=== PATIENT | female | born 1995 | race Caucasian/White ===

== ENCOUNTER 2016-10-23 05:00 | Inpatient (IN) ==
[2016-10-23] MEDS: LACTATED RINGERS 1,000 ML IV SCH ×2 (06:00→09:15)
[2016-10-23] MEDS ORDERED: BUTORPHANOL 1 MG/ML VIAL IV ONE (06:00)
[2016-10-23] MEDS ORDERED: BUTORPHANOL 1 MG/ML VIAL ONE (06:00)
[2016-10-23] MEDS ORDERED: ONDANSETRON 4 MG/2 ML VIAL ONE (06:01)
[2016-10-23] MEDS ORDERED: BUTORPHANOL 2 MG/ML VIAL IV PRN (06:13)
[2016-10-23] MEDS ORDERED: ONDANSETRON 4 MG/2 ML VIAL IV PRN ×2 (06:13→17:40)
[2016-10-23 06:46] LABS: Basophils % 0.4 % (0.0-0.8); Eosinophils # 0.1 10*3/uL (0.0-0.87); Eosinophils % 0.5 % (0.00-10.9); Hematocrit 32.4 VOL% (35.7-47.0); Immature Granulocytes % 0.9 %; Immature Granulocytes Absolute 0.09 #; Lymphocytes # 1.1 10*3/uL (1.4-4.0); Lymphocytes % 11.7 % (21.3-54.2); Mean Corpuscular Hemoglobin 31 PG (27-34); Mean Corpuscular Volume 89.8 FL (87-102); Mean Platelet Volume 11.9 FL (9.6-12.0); Monocytes # 0.7 10*3/uL (0.11-0.8); Monocytes % 7.4 % (1.7-12.7); Neutrophils # 7.6 10*3/uL (1.4-7.4); Neutrophils % 79.1 % (38.7-73.9); Platelet Count 130 T/CUMM (130-400); Red Blood Count 3.61 MC/CUMM (3.8-5.5); Red Cell Distribution Width 12.5 % (9.3-17.3); White Blood Count 9.6 T/CUMM (4-12)
[2016-10-23] MEDS ORDERED: diphenhydrAMINE 50 MG/1 ML VIAL IV PRN ×2 (07:52)
[2016-10-23] MEDS ORDERED: ePHEDrine 50 MG/ML AMP IV PRN (07:52)
[2016-10-23] MEDS ORDERED: hydrOXYzine HCL 25 MG/1 ML VIAL IM PRN (07:52)
[2016-10-23] MEDS ORDERED: PROMETHAZINE 25 MG/1 ML VIAL IM ONE (07:52)
[2016-10-23] MEDS ORDERED: ONDANSETRON 4 MG/2 ML VIAL IV ONE (07:52)
[2016-10-23] MEDS ORDERED: CITRIC ACID/SODIUM CITRATE 30 ML UDCUP PO ONE (07:52)
[2016-10-23] MEDS ORDERED: LACTATED RINGERS 1,000 ML IV ONE ×2 (07:52→17:40)
[2016-10-23] MEDS ORDERED: FAMOTIDINE 20 MG/2 ML VIAL IV ONE (07:52)
[2016-10-23] MEDS: fentaNYL 2 MCG/ROPIV 0.2% EPID 150 ML EPIDURAL SCH (08:25)
--- NOTE | 2016-10-23 09:21 | History and Physical Update ---
History and Physical Update - Dictation Physical: refer to scanned H&P - Physical Exam Mental Status: alert and oriented Heart: regular rate and rhythm Lung: clear to auscultation Abdomen: within normal limits Vitals: within normal limits History and Physical Changes: 38 weeks in active labor with regular UC's, cervix now at 6-7 cm/80%/0 station. FHTs Category 1. GBS negative. Expect .
[2016-10-23] MEDS ORDERED: miSOPROStol 200 MCG TABLET ONE (11:32)
[2016-10-23] MEDS ORDERED: LIDOCAINE 1% 50 ML VIAL ONE (11:32)
[2016-10-23] MEDS ORDERED: OXYTOCIN/LR 20 UNIT/1,000 ML BAG IV ONE ×2 (11:32→13:50)
[2016-10-23] MEDS ORDERED: BENZOCAINE 20%/MENTHOL 0.5% SPRAY 56 GM CAN TOP PRN (17:36)
[2016-10-23] MEDS ORDERED: BISACODYL 10 MG SUPP RECTAL PRN (17:40)
[2016-10-23] MEDS ORDERED: LANOLIN 50% CREAM 0.3 OZ TUBE TOP PRN (17:40)
[2016-10-23] MEDS ORDERED: WITCH HAZEL PADS 100/JAR TOP PRN (17:40)
[2016-10-23] MEDS ORDERED: HYDROCORTISONE 2.5% RECTAL CREAM 30 GM TUBE TOP PRN (17:40)
[2016-10-23] MEDS: IBUPROFEN 800 MG TABLET PO PRN (17:50)
[2016-10-23] MEDS: DOCUSATE SODIUM 100 MG CAPSULE PO SCH (21:16)
[2016-10-24] MEDS: LACTATED RINGERS 1,000 ML IV SCH ×2 (02:28→06:50)
[2016-10-24] MEDS: fentaNYL 2 MCG/ROPIV 0.2% EPID 150 ML EPIDURAL SCH (02:29)
[2016-10-24 05:43] LABS: Basophils % 0.3 % (0.0-0.8); Eosinophils # 0.1 10*3/uL (0.0-0.87); Hematocrit 25.6 VOL% (35.7-47.0); Hemoglobin 8.5 GM/DL (12.0-16.0); Immature Granulocytes % 0.5 %; Immature Granulocytes Absolute 0.06 #; Lymphocytes # 1.3 10*3/uL (1.4-4.0); Lymphocytes % 11.1 % (21.3-54.2); Mean Corpuscular HGB Conc 33.2 GM/DL (32-36); Mean Corpuscular Hemoglobin 31 PG (27-34); Mean Corpuscular Volume 91.8 FL (87-102); Mean Platelet Volume 11.8 FL (9.6-12.0); Monocytes # 1.1 10*3/uL (0.11-0.8); Monocytes % 9.7 % (1.7-12.7); Neutrophils % 77.4 % (38.7-73.9); Platelet Count 107 T/CUMM (130-400); Red Blood Count 2.79 MC/CUMM (3.8-5.5); Red Cell Distribution Width 12.7 % (9.3-17.3); White Blood Count 11.6 T/CUMM (4-12)
[2016-10-24] MEDS: IBUPROFEN 800 MG TABLET PO PRN ×3 (06:50→18:35)
[2016-10-24] MEDS: MULTIVITAMIN (PRENATAL) TABLET PO SCH (10:00)
[2016-10-24] MEDS: DOCUSATE SODIUM 100 MG CAPSULE PO SCH ×2 (10:00→20:48)
[2016-10-24] MEDS: FERROUS SULFATE 325 MG TABLET PO SCH ×2 (10:00→20:48)
[2016-10-24] MEDS: ACETAMINOPHEN/CODEINE 300-30 MG TABLET PO PRN ×2 (10:05→18:35)
[2016-10-24] MEDS ORDERED: ACETAMINOPHEN/CODEINE 300-30 MG TABLET ONE (10:05)
[2016-10-24] MEDS ORDERED: RHO(D) IMMUNE GLOBULIN 300 MCG SYRINGE IM ONE (11:17)
--- NOTE | 2016-10-24 17:10 | Anesthesia Post-Op ---
Anesthesia Post OP - Post Ansesthetic Evaluation Patient seen in post op: Yes Resp: within normal limits CV: within normal limits Mental: within normal limits Temp: within normal limits Ufta-[id number]: within normal limits Nausea and Vomiting: within normal limits Pain: within normal limits
[2016-10-25] MEDS: ACETAMINOPHEN/CODEINE 300-30 MG TABLET PO PRN ×2 (03:29→09:04)
[2016-10-25] MEDS ORDERED: RHO(D) IMMUNE GLOBULIN 300 MCG SYRINGE IM ONE (07:00)
[2016-10-25] MEDS ORDERED: MEASLES/MUMPS/RUBELLA VACCINE 0.5 ML VIAL SUBCUT ONE (07:00)
[2016-10-25] MEDS ORDERED: DIPH/TET/ACEL PERT BOOSTER VACCINE 0.5 ML VIAL IM ONE (07:00)
[2016-10-25 07:41] VITALS: BP 118/59
--- NOTE | 2016-10-25 08:41 | Discharge Summary ---
Hospital Course - Hospital Course Hospital Course: Pt was admitted in active labor at 38 wks. She delivered with vacuum assistance to vertex over 2nd degree perineal laceration with extension into the capsule. Her course has been unremarkable except that she did very well. Discharge Plan - Discharge Data Disposition: Disch To Home/Self Care Condition at Discharge: Stable Discharge Diet: regular diet Activity: other (pelvic rest x 6 wks) Hygiene: may shower Weight Bearing at Discharge: full weight bearing Driving: no restrictions (if not taking narcotics) Contact your physician if you experience:: fever over 101, Difficulty voiding, Redness or swelling, Nausea/Vomiting, Shortness of breath, Bleeding, pain uncontrolled by pain medications - Discharge Medications New Acetamin/Codeine 300-30 Tab [Tylenol/Codeine #3] 2 tablet PO Q4H PRN #30 tablet PRN Reason: Pain Mild (1-3) Ibuprofen Tab [Motrin Tab] 800 mg PO Q6H PRN #30 tablet PRN Reason: Pain Moderate (4-7) No Action Pnv No.95/Ferrous Fum/Folic AC [ Tablet] 1 each PO DAILY Montelukast Tab [Singulair Tab] 1 each PO DAILY Omeprazole Magnesium [Prilosec Otc] 1 mg PO DAILY - Follow Up or Referral Follow Up: Miley Buitrago DO [Physician] - (6 wks ) - Forms/Instructions Exam - Constitutional Vitals: Period Temp Pulse Resp BP Sys/[place] Pulse Ox Last 24 Hr 97.5 F-98.8 F 58-83 16-20 88-118/54-71 97-99 General appearance: normal weight, no acute distress - Head Head exam: Present: normal inspection, normocephalic - Eye Eye exam: Present: EOMI - Respiratory Respiratory exam: Present: clear to auscultation bilaterally - Cardiovascular Cardiovascular exam: Present: regular rate and rhythm - GI/Abdominal GI/Abdominal exam: Present: soft (fundus firm, nontender) - Extremities Exam Extremities exam: Present: normal inspection - Neurological Exam Neurological exam: Present: alert, oriented X3 - Psychiatric Psychiatric exam: Present: normal affect, normal mood - Skin Skin exam: Present: normal color, warm DS: Provider Date of admission: 10/23/16 06:13 Attending physician on admission: Miley Buitrago DO Consults: 10/23/16 06:13 Consult to Anesthesiology [CONS] Routine Consulting Provider: Reason for Anesthesiology: Epidural Consult Comment: Epidural for pain managment 10/23/16 17:40 Consult to [place] Headgate Operator [CONS] Routine Consult [place] Headgate Operator: Breast Feeding Discharging clinician: Miley Buitrago DO Expected date of discharge: 10/25/16
[2016-10-25] MEDS: MULTIVITAMIN (PRENATAL) TABLET PO SCH (09:03)
[2016-10-25] MEDS: DOCUSATE SODIUM 100 MG CAPSULE PO SCH (09:03)
[2016-10-25] MEDS: FERROUS SULFATE 325 MG TABLET PO SCH (09:03)
--- NOTE | 2016-10-31 16:25 | Physician Query Form ---
CLICK EDIT DOCUMENT TO SELECT QUERY ANSWER --> OK --> SIGN Nerissa Arndt RN Clinical [employer] Liquor Maker W) [phone] (f) [phone] [email or web address] PROVIDERS: Make your selection(s) from the choices in EACH section by typing an "x" and enter comments in the comment section. Please use your independent medical judgment in providing your response. This request does not imply that any particular answer is desired or expected. CLINICAL INDICATORS: (Providers should not edit this section) Based on documentation of "She delivered with vacuum assistance" "Patient progressed to complete and pushing with labor epidural and pitocin. Delivered a viable via kiwi vacuum assistance" Please clarify the reason for use of vacuum assistance. Based on the above, could you clarify the appropriate diagnosis, if significant , that supports the above abnormalities and additional evaluation, monitoring, and/or treatment rendered: ( ) distress ( ) Maternal exhaustion ( ) Labor complication ( ) Attempted or failed delivery ( ) Other, please specify: ( ) Clinically unable to determine COMMENTS: PLEASE ALSO DOCUMENT RESPONSE IN PROGRESS NOTES AND/OR DISCHARGE SUMMARY Use of terms such as suspected, likely, or probable (associated with a specific diagnosis that is being evaluated, monitored, or treated as if it exists) are acceptable and can be restated in the discharge summary if not ruled out. MTDD
--- NOTE | 2016-11-01 08:53 | Physician Query Form ---
CLICK EDIT DOCUMENT TO SELECT QUERY ANSWER --> OK --> SIGN Nerissa Arndt RN Clinical Senior Clinical Project Manager W) [phone] (f) [phone] [email or web address] PROVIDERS: Make your selection(s) from the choices in EACH section by typing an "x" and enter comments in the comment section. Please use your independent medical judgment in providing your response. This request does not imply that any particular answer is desired or expected. CLINICAL INDICATORS: (Providers should not edit this section) Based on documentation of "She delivered with vacuum assistance" "Patient progressed to complete and pushing with labor epidural and pitocin. Delivered a viable via kiwi vacuum assistance" Please clarify the reason for use of vacuum assistance. Based on the above, could you clarify the appropriate diagnosis, if significant , that supports the above abnormalities and additional evaluation, monitoring, and/or treatment rendered: ( ) distress ( ) Maternal exhaustion ( ) Labor complication ( ) Attempted or failed delivery ( ) Other, please specify: ( ) Clinically unable to determine COMMENTS: PLEASE ALSO DOCUMENT RESPONSE IN PROGRESS NOTES AND/OR DISCHARGE SUMMARY Use of terms such as suspected, likely, or probable (associated with a specific diagnosis that is being evaluated, monitored, or treated as if it exists) are acceptable and can be restated in the discharge summary if not ruled out. MTDD
== END 2016-10-25 12:40 | disposition home or self-care (01) | DRG 775 ==
LOC: N.LDOUT 05:00 → N.LD 05:02 → N.OB 16:58
PROVIDERS: ADMIT Obstetrics & Gynecology; ATTEND Obstetrics & Gynecology